=== PATIENT | female | born 1980 | race African-American/Black ===

== ENCOUNTER 2016-11-07 19:13 | Emergency (ER) | payer BC, MEDICAID ==
[~2016-11-07] VITALS: Ht 170.2 cm; Wt 64.0 kg
[2016-11-07 19:18] VITALS: BP 119/85
[2016-11-07] MEDS ORDERED: ACETAMINOPHEN ES 500 MG TABLET ONE (19:52)
[2016-11-07] MEDS ORDERED: ACETAMINOPHEN ES 500 MG TABLET PO ONE (20:00)
== END 2016-11-07 21:28 | disposition home or self-care (01) ==
LOC: ER 19:18
DX: L03.115 Cellulitis of right lower limb (principal); L70.5 Acne excoriee; F19.90 Other psychoactive substance use, unspecified, uncomplicated; F41.9 Anxiety disorder, unspecified; L93.0 Discoid lupus erythematosus; F17.200 Nicotine dependence, unspecified, uncomplicated
CPT/HCPCS: A4606; Z7610

== ENCOUNTER 2017-07-08 20:53 | Emergency (ER) | payer BC, MEDICAID ==
--- NOTE | 2017-07-08 21:45 | NUR ---
REFUSED TO BE TRIAGED AND DECIDED TO LEAVE.
== END 2017-07-08 21:57 | disposition left against medical advice (07) ==
LOC: ER 21:06
DX: Z53.21 Procedure and treatment not carried out due to patient leaving prior to being seen by health care provider (principal)

== ENCOUNTER 2017-08-03 09:40 | Emergency (ER) | payer BC ==
[~2017-08-03] VITALS: Ht 165.1 cm; Wt 61.2 kg
--- NOTE | 2017-08-03 09:45 | NUR ---
bib from coffee jack dt altered mental status. Patient reeived asleep, easily arouseble. Appears in no apparent distress. Respiration even and unlabored. Sating well on room air. Skin is warm to touch and non diaphoretic. Afebrile. vss
--- NOTE | 2017-08-03 10:10 | NUR ---
PT IS MORE AWAKE. DR DUNCAN AT BEDSIDE TALKING TO PT.
--- NOTE | 2017-08-03 10:10 | NUR ---
Patient is aao4. Appears in no apparent distress. Per patient she did not take any medication,. Patient denies Si nor HI. Admitted falling asleep in coffee jack. Did not pass out. Patient's vss.
--- NOTE | 2017-08-03 10:12 | NUR ---
Called Poison control, spoke to Ana Kim, she stated to watch for weird muscle movement, twitching- is common, she might be tachycardic, dilated pupil might be present. Give support of care- put the patient in cardiac nurse, check for ekg, metabolic panel, check for asa, acetaminophen level, and alcohol level.
[2017-08-03] MEDS: IV NS 0.9% 1,000 ML BAG IV ONE ×2 (10:20→10:45)
[2017-08-03] MEDS: NALOXONE HCL 0.4 MG/ML AMPUL IV ONE ×2 (10:21→10:45)
[2017-08-03] MEDS ORDERED: NALOXONE HCL 0.4 MG/ML AMPUL ONE (11:01)
[2017-08-03 11:05] LABS: BASOPHILS % (AUTO) 0.3 % (0.0-2.0); EOSINOPHILS # (AUTO) 0.2 /CMM (0.0-0.7); HEMATOCRIT 32 % (33-45); HEMOGLOBIN 10.9 g/dL (11.5-14.8); LYMPHOCYTES # (AUTO) 1.3 /CMM (0.8-4.8); LYMPHOCYTES % (AUTO) 15.9 % (20.0-44.0); MEAN CORPUSCULAR HEMOGLOBIN 31 PG (26.0-33.0); MEAN CORPUSCULAR HGB CONC 34 g/dl (31.0-36.0); MEAN CORPUSCULAR VOLUME 91 fL (82-100); MONOCYTES # (AUTO) 0.6 /CMM (0.1-1.30); MONOCYTES % (AUTO) 7.5 % (2.0-12.0); NEUTROPHILS # (AUTO) 5.8 /CMM (1.8-8.9); NEUTROPHILS % (AUTO) 73.3 % (43.0-81.0); PLATELET COUNT (AUTO) 324 /CMM (150-450); RDW COEFFICIENT OF VARIATION 14.3 (11.5-15.0); RED BLOOD CELL COUNT(AUTO) 3.55 MIL/uL (4.0-5.2)
[2017-08-03 11:06] LABS: APPEARANCE,URINE CLEAR (CLEAR); BILIRUBIN,URINE NEGATIVE (NEGATIVE); BLOOD, URINE NEGATIVE Ery/uL (NEGATIVE); COLOR,URINE YELLOW (YELLOW); KETONES,URINE TRACE (NEGATIVE); LEUKOCYTE ESTERASE ,URINE NEGATIVE (NEGATIVE); NITRITE, URINE NEGATIVE (NEGATIVE); PROTEIN,URINE NEGATIVE (NEGATIVE); UGLUCOSE NEGATIVE (NEGATIVE); UROBILINOGEN,URINE 0.2 EU/dL (0.2)
[2017-08-03 11:18] LABS: BACTERIA,URINE Rare /HPF (None Seen); RBC,URINE 0-2 /HPF (0-2); SQUAMOUS EPITHELIAL CELL,UR Few /HPF (None Seen); WBC,URINE 0-2 /HPF (0-3)
[2017-08-03 11:22] LABS: CALCIUM, SERUM 9.1 mg/dL (8.5-10.1); CARBON DIOXIDE 25 mmol/L (21-32); CHLORIDE 107 mmol/L (98-107); CREATININE 0.6 mg/dL (0.6-1.3); GLUCOSE 104 mg/dL (74-106); POTASSIUM 3.5 mmol/L (3.5-5.1); SODIUM SERUM 140 mmol/L (136-145); UREA NITROGEN, BLOOD 15 mg/dL (7-18)
[2017-08-03 11:26] LABS: ALANINE AMINOTRANSFERASE 43 U/L (12-78); ALBUMIN 3.4 g/dL (3.4-5.0); ALCOHOL, BLOOD < 3 mg/dL (0-0); ALKALINE PHOSPHATASE 59 U/L (46-116); ASPARTATE AMINOTRANSFERASE 19 U/L (15-37); BILIRUBIN,DIRECT 0.1 mg/dL (0.0-0.2); BILIRUBIN,TOTAL 0.3 mg/dL (0.2-1.0); TOTAL PROTEIN, SERUM 6.8 g/dL (6.4-8.2)
[2017-08-03 11:27] LABS: ACETAMINOPHEN 0 ug/ml (10-30); SALICYLATE 1.1 mg/dL (2.8-20.0)
[2017-08-03] MEDS ORDERED: DEXTROSE 50%-WATER 50 ML DISP.SYRIN ONE (13:20)
[2017-08-03] MEDS ORDERED: DEXTROSE 50%-WATER 50 ML DISP.SYRIN IVP ONE (13:30)
--- NOTE | 2017-08-03 17:46 | NUR ---
ACCUCHECK : 99
[2017-08-03 18:07] VITALS: BP 120/70
--- NOTE | 2017-08-03 18:07 | NUR ---
Patient discharged to home in stable condition. Written and verbal after care instructions given. Patient verbalizes understanding of instruction.
== END 2017-08-03 18:08 | disposition home or self-care (01) ==
LOC: ER 09:43
DX: R41.82 Altered mental status, unspecified (principal); F19.90 Other psychoactive substance use, unspecified, uncomplicated; F17.200 Nicotine dependence, unspecified, uncomplicated; M79.7 Fibromyalgia
CPT/HCPCS: 36415; 51701; 70450; 80048; 80076; 80305; 80329; 81001; 82962 ×2; 84702; 85025; 93005; 96361; 96374; 96375; 99285; A4606; G0480 ×2; J2310; J7030; Z7610; 81000-TC

== ENCOUNTER 2018-04-05 00:20 | Emergency (ER) | payer BC, OTHER ==
[~2018-04-05] VITALS: Ht 172.7 cm; Wt 59.0 kg
--- NOTE | 2018-04-05 00:25 | NUR ---
38 yo female bb ra. Pt states after using meth she became paranoid, she feels like someone is out to get her. patient assisted to er bed, skin warm and dry, resp even and unlabored. patient placed on oxidation engineer. skin warm and dry, resp even and unlabored. awaiting orders from provider, will continue to monitor
[2018-04-05] MEDS ORDERED: HALOPERIDOL LACTATE INJ 5 MG/ML VIAL IM ONE (00:30)
[2018-04-05] MEDS ORDERED: LORAZEPAM INJ 2 MG/ML VIAL IM ONE (00:30)
--- NOTE | 2018-04-05 00:35 | NUR ---
MD Means at bed side for eval
[2018-04-05] MEDS ORDERED: HALOPERIDOL LACTATE INJ 5 MG/ML VIAL ONE (00:40)
[2018-04-05] MEDS ORDERED: LORAZEPAM INJ 2 MG/ML VIAL ONE (00:41)
--- NOTE | 2018-04-05 00:41 | NUR ---
Medicated pt as ordered
[2018-04-05 01:34] LABS: BASOPHILS % (AUTO) 0.3 % (0.0-2.0); EOSINOPHILS % (AUTO) 0.2 % (0.0-6.0); HEMATOCRIT 33 % (33-45); HEMOGLOBIN 10.8 g/dL (11.5-14.8); LYMPHOCYTES # (AUTO) 1.1 /CMM (0.8-4.8); MEAN CORPUSCULAR HEMOGLOBIN 32 PG (26.0-33.0); MEAN CORPUSCULAR HGB CONC 33 g/dl (31.0-36.0); MEAN CORPUSCULAR VOLUME 96 fL (82-100); MONOCYTES # (AUTO) 0.5 /CMM (0.1-1.30); MONOCYTES % (AUTO) 6.8 % (2.0-12.0); NEUTROPHILS # (AUTO) 5.6 /CMM (1.8-8.9); NEUTROPHILS % (AUTO) 77.7 % (43.0-81.0); PLATELET COUNT (AUTO) 355 /CMM (150-450); RED BLOOD CELL COUNT(AUTO) 3.37 MIL/uL (4.0-5.2); WHITE BLOOD COUNT (AUTO) 7.2 K/uL (4.3-11.0)
[2018-04-05 01:46] LABS: CALCIUM, SERUM 8.5 mg/dL (8.5-10.1); CARBON DIOXIDE 25 mmol/L (21-32); CHLORIDE 103 mmol/L (98-107); CREATININE 0.7 mg/dL (0.6-1.3); GLUCOSE 89 mg/dL (74-106); POTASSIUM 3.3 mmol/L (3.5-5.1); SODIUM SERUM 139 mmol/L (136-145); UREA NITROGEN, BLOOD 23 mg/dL (7-18)
[2018-04-05 01:47] LABS: ALCOHOL, BLOOD < 3 mg/dL (0-0)
--- NOTE | 2018-04-05 02:30 | NUR ---
ART CAPILLA CALLED
--- NOTE | 2018-04-05 02:39 | NUR ---
Urine sample obtained and sent to lab
--- NOTE | 2018-04-05 03:05 | NUR ---
patient is resting in er bed, no distress noted, skin warm and dry, resp even and unlabored. will continue to monitor
--- NOTE | 2018-04-05 05:01 | NUR ---
per art, pt is too sedated to be eval. patient is resting in er bed, no distress noted, skin warm and dry, will continue to monitor
--- NOTE | 2018-04-05 06:02 | NUR ---
Gave patient water
--- NOTE | 2018-04-05 06:44 | NUR ---
Vital signs updated
--- NOTE | 2018-04-05 14:36 | NUR ---
1425 CALLED [facility] FOR PSYCH EVAL
--- NOTE | 2018-04-05 15:37 | NUR ---
WAITING TO HEAR BACK FOR BED AT [facility], DR MENDOZA ACCEPTING.
--- NOTE | 2018-04-05 15:38 | NUR ---
[id number] [facility] INTAKE - GARY
--- NOTE | 2018-04-05 16:23 | NUR ---
[id number] EXT [id number]. PER [facility] NEED PREG TEST AND FOLLOW UP ON POTASSIUM.
[2018-04-05] MEDS ORDERED: POTASSIUM CHLORIDE 20 MEQ TAB.PRT.SR PO ONE ×2 (16:30→16:46)
[2018-04-05 16:45] VITALS: BP 119/77
--- NOTE | 2018-04-05 17:08 | NUR ---
PT IS ACCEPTED TO [address] AT [facility]. [id number] EXT [id number] [facility] WILL TRANSFER FOR REPORT
--- NOTE | 2018-04-05 17:19 | NUR ---
REPORT GIVE N Addendum: 04/05/18 at 1719 by KYLE REPORT GIVEN TO YVONNE ANDRADE AT [facility]
--- NOTE | 2018-04-05 17:24 | NUR ---
CALLED [facility] FOR BLS TRANSPORT TO [facility]. TRIP#[id number]; ETA 1800.
== END 2018-04-05 18:34 | disposition short-term general hospital (02) ==
LOC: ER 00:22
DX: F23 Brief psychotic disorder (principal); F15.10 Other stimulant abuse, uncomplicated; F19.10 Other psychoactive substance abuse, uncomplicated; R45.851 Suicidal ideations; F41.9 Anxiety disorder, unspecified; F32.9 Major depressive disorder, single episode, unspecified; F17.200 Nicotine dependence, unspecified, uncomplicated; Z60.2 Problems related to living alone
CPT/HCPCS: 36415; 80048-TC; 80305; 84703-TC; 85025-TC; A4606; G0480; J1630; J2060; Z7610

== ENCOUNTER 2022-07-03 20:55 | Emergency (ER) | payer OTHER ==
[~2022-07-03] VITALS: Ht 170.2 cm; Wt 68.0 kg
[2022-07-03 21:24] VITALS: BP 105/72
[2022-07-03] MEDS ORDERED: TDAP [DIPH/PERTUSSIS/TET] 0.5 ML VIAL IM ONE ×2 (22:00→22:14)
[2022-07-03] MEDS ORDERED: IBUPROFEN 600 MG TABLET PO ONE (22:00)
[2022-07-03] MEDS ORDERED: IBUPROFEN 600 MG TABLET ONE (22:13)
[2022-07-03] MEDS ORDERED: CEPH500T PO (22:37)
--- NOTE | 2022-07-03 23:00 | NUR ---
Patient discharged to home in stable condition. Written and verbal after care instructions given. Patient verbalizes understanding of instruction.
== END 2022-07-03 23:00 | disposition home or self-care (01) ==
LOC: ER 20:56
DX: S09.92XA Unspecified injury of nose, initial encounter (principal); S91.332A Puncture wound without foreign body, left foot, initial encounter; F32.A Depression, unspecified; F41.9 Anxiety disorder, unspecified; M79.7 Fibromyalgia; F17.200 Nicotine dependence, unspecified, uncomplicated; Z59.00 Homelessness unspecified; Z79.899 Other long term (current) drug therapy; W22.8XXA Striking against or struck by other objects, initial encounter; V89.2XXA Person injured in unspecified motor-vehicle accident, traffic, initial encounter; Y93.89 Activity, other specified; Y92.89 Other specified places as the place of occurrence of the external cause; Y99.8 Other external cause status
CPT/HCPCS: 70160-TC; 90715